=== PATIENT | male | born 1975 | race American Indian/Alaskan Native ===

== ENCOUNTER 2021-09-03 01:13 | Emergency (ER) | payer SELFPAY ==
[2021-09-03 01:27] VITALS: BP 111/67
[2021-09-03] MEDS ORDERED: predniSONE 20 MG TAB PO ONE (04:00)
[2021-09-03] MEDS ORDERED: ACETAMINOPHEN 500 MG TAB PO ONE (04:00)
--- NOTE | 2021-09-03 04:23 | XRay Report ---
CHEST 1 VIEW INDICATION / CLINICAL INFORMATION: COUGH/WHEEZING. COMPARISON: None available. FINDINGS: SUPPORT DEVICES: None. HEART / MEDIASTINUM: No significant abnormality. LUNGS / PLEURA: No significant pulmonary or pleural abnormality. BONES: No significant osseous abnormality. ADDITIONAL FINDINGS: No significant additional findings. IMPRESSION: 1. No active cardiopulmonary disease. Signer Name: Jone Brower II, MD Signed: 09/03/2021 4:19 AM Workstation Name: [id number]
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
== END 2021-09-03 07:00 | disposition home or self-care (01) ==
LOC: ED 01:13
DX: J45.901 Unspecified asthma with (acute) exacerbation (principal); M62.830 Muscle spasm of back; M54.6 Pain in thoracic spine; Z91.013 Allergy to seafood; Z79.899 Other long term (current) drug therapy; V89.2XXA Person injured in unspecified motor-vehicle accident, traffic, initial encounter; Y93.89 Activity, other specified; Y92.488 Other paved roadways as the place of occurrence of the external cause; Y99.8 Other external cause status
CPT/HCPCS: 71045; 71046; 99283

== ENCOUNTER 2021-12-14 21:30 | Emergency (ER) | payer OTHER ==
[2021-12-14 21:52] VITALS: BP 132/73
--- NOTE | 2021-12-14 22:32 | XRay Report ---
LEFT HAND, 3 VIEWS INDICATION / CLINICAL INFORMATION: LT FINGER LAC. COMPARISON: None available. FINDINGS: There is comminuted intra-articular fracture involving the distal aspect of the middle phalanx of the ring finger. The distal phalanx of the ring finger is mostly intact. I cannot exclude tiny avulsion fracture from the distal phalanx. There is minimal displacement of the fracture site. The graft no ad ditional fractures are noted. There is prominent soft tissue defect adjacent to the fracture site. IMPRESSION: Prominently comminuted intra-articular fracture involving the distal aspect of the middle phalanx of the ring finger. This corresponds to area of soft tissue defect consistent with history o f laceration. Signer Name: Kristen Marino MD Signed: 12/14/2021 10:28 PM Workstation Name: [id number]
== END 2021-12-16 03:55 | disposition left against medical advice (07) ==
LOC: ED 21:30
DX: S61.412A Laceration without foreign body of left hand, initial encounter (principal); Z53.21 Procedure and treatment not carried out due to patient leaving prior to being seen by health care provider; X58.XXXA Exposure to other specified factors, initial encounter; Y93.89 Activity, other specified; Y92.89 Other specified places as the place of occurrence of the external cause; Y99.8 Other external cause status